=== PATIENT | male | born 1960 | race Caucasian/White ===

== ENCOUNTER → 2023-06-26 12:45 | Outpatient (REF) | payer BC, SELFPAY | LOC: HWLAB 12:45 | PROVIDERS: ATTENDING PHYSICIAN Internal Medicine | DX: Z00.00 Encounter for general adult medical examination without abnormal findings (principal); E78.5 Hyperlipidemia, unspecified; E29.1 Testicular hypofunction; Z12.5 Encounter for screening for malignant neoplasm of prostate | CPT/HCPCS: G0103 ==

== ENCOUNTER 2024-04-07 06:21 | Day surgery (SDC) | payer BC, SELFPAY | END 2024-04-07 12:32 | disposition home or self-care (01) | LOC: GI 06:21 | PROVIDERS: ATTENDING PHYSICIAN Specialist | DX: Z12.11 Encounter for screening for malignant neoplasm of colon (principal); K57.30 Diverticulosis of large intestine without perforation or abscess without bleeding; D12.8 Benign neoplasm of rectum; D12.3 Benign neoplasm of transverse colon; D12.4 Benign neoplasm of descending colon; Z98.0 Intestinal bypass and anastomosis status; Z86.0101 Personal history of adenomatous and serrated colon polyps | CPT/HCPCS: 45385; 88305 ==

== ENCOUNTER → 2024-04-19 10:08 | Outpatient (REF) | payer BC, SELFPAY ==
[2024-04-19 12:51] LABS: % Basophils 0.5 % (0-2); % Eosinophils 3.2 % (0-6); % Immature Granulocytes 0.2 % (0-0.5); % Lymphocytes 37.9 % (20.5-51.1); % Monocytes 9.4 % (1.7-9.3); % Neutrophils 48.8 % (42.2-75.2); ALT (SGPT) 22 U/L (0-50); AST (SGOT) 23 U/L (17-59); Absolute Eosinophils 0.1 10^3/uL (0-0.7); Absolute Lymphocytes 1.5 10^3/uL (1.2-3.4); Absolute Monocytes 0.4 10^3/uL (0.1-0.6); Albumin 4.2 g/dl (3.5-5.0); Alkaline Phosphatase 54 U/L (38-126); Blood Urea Nitrogen 14 mg/dl (9-20); Calcium 9.4 mg/dl (8.4-10.2); Carbon Dioxide 30 mmol/L (22-30); Chloride 100 mmol/L (98-107); Glucose 109 mg/dl (70-99); HDL Cholesterol 50 mg/dl; Hematocrit 47.3 % (39.0-52.0); Hemoglobin 15.6 g/dL (13.0-18.0); LDL Cholesterol, Calculated 130 mg/dl; Mean Corpuscular Hgb 29.8 pg (27.0-31.0); Mean Corpuscular Volume 90.3 fL (80.0-94.0); Mean Platelet Volume 10.6 fL (7.4-10.4); Nucleated Red Blood Cells % 0 % (-); Platelet Count 208 10^3/uL (130-400); Potassium 4.6 mmol/L (3.5-5.1); Red Blood Cell Count 5.24 10^6/uL (4.70-6.10); Red Cell Dist. Width 12.2 % (11.5-14.5); Sodium 137 mmol/L (135-145); Total Cholesterol 196 mg/dl (50-199); Total Protein 6.5 g/dl (6.3-8.2); Triglyceride 82 mg/dl (10-149); Very Low Density Lipoprotein 16 mg/dl (0-30); eGFR > 60.00
[2024-04-19 13:32] LABS: PSA, Total - Screen 0.84 ng/ml (0.0-4.0)
[2024-04-20 15:44] LABS: % Free Testosterone 1.3 % (1.6-2.9); Free Testosterone 82 pg/mL (47-244); Sex Hormone Binding Globulin 60 nmol/L (19-76); Total Testosterone 615 ng/dL (300-720)
== END ==
LOC: HWLAB 10:08
PROVIDERS: ATTENDING PHYSICIAN Internal Medicine
DX: E78.5 Hyperlipidemia, unspecified (principal); E29.1 Testicular hypofunction; Z12.5 Encounter for screening for malignant neoplasm of prostate
CPT/HCPCS: 36415; 80053; 80061; 84270; 84402; 84403; 85025; G0103